=== PATIENT | female | born 1960 | race Asian ===

== ENCOUNTER 2016-04-10 11:10 | Day surgery (SDC) | payer BC ==
[~2016-04-10] VITALS: Ht 162.6 cm; Wt 61.5 kg
[2016-04-10 11:56] VITALS: Ht 162.6 cm; Wt 61.5 kg
[2016-04-10] MEDS ORDERED: ATEN50TA PO (11:59)
[2016-04-10 12:03] VITALS: BP 140/92; PULSE 69; RESP 17
[2016-04-10] MEDS ORDERED: MIDAZOLAM 1 MG/ML 2 ML INJ ONE ×2 (12:35→12:36)
[2016-04-10] MEDS ORDERED: FENTAnyl 50 MCG/ML VIAL ONE (12:36)
[2016-04-10 12:52] VITALS: BP 144/101; PULSE 68; RESP 19
--- NOTE | 2016-04-10 13:04 | GILP ---
DATE OF PROCEDURE: NAME OF PROCEDURE: Colonoscopy. SURGEON: Mack Butler MD PREOPERATIVE DIAGNOSIS: Screening colonoscopy. POSTOPERATIVE DIAGNOSES: 1. Colonoscopy all the way to the cecum. 2. Internal hemorrhoids. 3. No colon neoplasm was identified. INDICATION FOR THE PROCEDURE: Ms. Sunshine Krishnamurthy is a 55-year-old female patient who was scheduled f or screening colonoscopy. The procedure and possible complications are well explained to the patient, she understood and conse nted to the procedure. DESCRIPTION OF PROCEDURE: Under the influence of fentanyl and Versed, the colonoscope was carefully introduced in the rectum, and under direct vision, it was advanced all the way to the cecum. FINDINGS: The patient had internal hemorrhoids. No colon neoplasm was identified. She tolerated the procedure very well and there was no complication from the procedure. At the end of the procedure, she was awake with stable vital signs, and she was discharged home to the care of her family. IMPRESSION: 1. Colonoscopy all the way to the cecum. 2. Internal hemorrhoids. 3. No colon neoplasm was identified. PLAN: Next screening colonoscopy in 10 years. Dictated By: MACK DOCKERY/RADHA Conf#: [id number] DID#: [id number]
== END 2016-04-10 15:17 | disposition home or self-care (01) ==
LOC: GIL 11:10
PROVIDERS: ATTEND Internal Medicine Gastroenterology
DX: Z12.11 Encounter for screening for malignant neoplasm of colon (principal); K64.8 Other hemorrhoids; I10 Essential (primary) hypertension
CPT/HCPCS: 45378; J2250; J3010